=== PATIENT | male | born 1970 | race Two or more races ===

== ENCOUNTER 2023-03-23 04:54 | Day surgery (SDC) | payer OTHER ==
[2023-03-19 15:52] VITALS: BMI 30.4
[2023-03-23 13:12] VITALS: RESP 18
[2023-03-23] MEDS ORDERED: FENTANYL CITRATE/PF 50 MCG/ML VIAL ONE ×2 (15:50→16:00)
[2023-03-23] MEDS ORDERED: MIDAZOLAM HCL 2 MG/2 ML SINGLE DOSE VIAL ONE ×2 (15:51→16:04)
[2023-03-23] MEDS ORDERED: ONDANSETRON 4 MG/2 ML VIAL ONE (16:02)
[2023-03-23 17:25] VITALS: BP 118/60; PULSE 70; TEMP 98
== END 2023-03-23 17:25 | disposition home or self-care (01) ==
LOC: JASU-SURG 04:54
PROVIDERS: ATTEND Urology
PROC: 0TF4XZZ Fragmentation in Left Kidney Pelvis, External Approach (ICD-10-PCS; principal; 2023-03-23 15:00)
DX: N20.0 Calculus of kidney (principal)

== ENCOUNTER 2023-03-24 04:44 | Day surgery (SDC) | payer OTHER ==
[2023-03-24 04:51] VITALS: BMI 27.4
[2023-03-24] MEDS ORDERED: KETOROLAC TROMETHAMINE 30 MG/1 ML VIAL IVPUSH ONE (05:07)
[2023-03-24] MEDS ORDERED: ONDANSETRON 4 MG/2 ML VIAL IVPUSH ONE (05:08)
[2023-03-24] MEDS ORDERED: ONDANSETRON 4 MG/2 ML VIAL ONE (05:28)
[2023-03-24] MEDS ORDERED: KETOROLAC TROMETHAMINE 30 MG/1 ML VIAL ONE (05:28)
[2023-03-24 05:55] LABS: INR 1.09 (0.83-1.09); PROTHROMBIN TIME (PATIENT) 12.6 SEC (9.7-13.0)
[2023-03-24 05:57] LABS: ACTIVATED PTT 30.3 SECONDS (25.2-36.5)
[2023-03-24 06:06] LABS: POTASSIUM 4.1 mmol/L (3.5-5.1)
[2023-03-24 06:08] LABS: ALBUMIN 3.7 g/dl (3.4-5.0); BLOOD UREA NITROGEN 20.7 mg/dL (7-18); CALCIUM 8.5 mg/dL (8.5-10.1)
[2023-03-24 06:11] LABS: CREATININE 1.5 mg/dL (0.55-1.3)
[2023-03-24 06:13] LABS: BILIRUBIN,TOTAL 0.3 mg/dL (0.2-1); TOT PROT 6.6 g/dl (6.4-8.2)
[2023-03-24 06:18] LABS: BASO % 0.5 % (0-2.0); EOS % 0.1 % (0-4.5); HEMATOCRIT 44.5 % (35.4-49); LYMPH % 11.8 % (8-40); MCH 28.7 pg (25.7-33.7); MCHC 33.7 g/dl (32.0-35.9); MEAN CELL VOLUME 85.3 fl (80-96); MONO % 6.9 % (3.8-10.2); NEUT % 80.7 % (42.8-82.8); PLATELET COUNT 192 10^3/uL (134-434); RBC 5.22 M/mm3 (4.00-5.60); RDW 14.3 % (11.9-15.9)
[2023-03-24 06:39] LABS: EPI CELLS 1 /uL (0-25.1); HYALINE CASTS 0 /uL (0-3.1); PH,URINE 5.5 (5.0-8.0); URINE APPEARANCE CLEAR; URINE BACTERIA 6 /uL (0-1359); URINE BILIRUBIN NEGATIVE (NEGATIVE); URINE COLOR YELLOW; URINE GLUCOSE (UA) NEGATIVE (NEGATIVE); URINE KETONE NEGATIVE (NEGATIVE); URINE LEUK ESTERASE NEGATIVE (NEGATIVE); URINE NITRITE NEGATIVE (NEGATIVE); URINE PROTEIN NEGATIVE (NEGATIVE); URINE RBC 102 /uL (0-23.9); URINE UROBILINOGEN 0.2 mg/dL (0.2-1.0); URINE WBC 9 /uL (0-25.8)
[2023-03-24] MEDS ORDERED: SODIUM CHLORIDE 0.9% 500 ML INFUS.BAG IV ONE ×2 (07:07→08:30)
[2023-03-24] MEDS ORDERED: TAMSULOSIN HCL 0.4 MG CAP PO ONE (07:17)
[2023-03-24] MEDS ORDERED: TAMSULOSIN HCL 0.4 MG CAP ONE (07:24)
[2023-03-24] MEDS ORDERED: ACETAMINOPHEN 1000 MG/100 ML BAG IVPB ONE (08:16)
[2023-03-24] MEDS ORDERED: ACETAMINOPHEN INJECTION 100 ML IVPB ONE (08:18)
[2023-03-24] MEDS ORDERED: SODIUM CHLORIDE 1,000 ML IV SCH (08:30)
[2023-03-24] MEDS ORDERED: CEFTRIAXONE 1 GM in DEXTROSE 5%-WATER - 100 ML IVPB ONE (08:30)
[2023-03-24] MEDS ORDERED: CEFTRIAXONE 1 GM/50 ML BAG ONE (08:40)
[2023-03-24] MEDS ORDERED: ACETAMINOPHEN 1000 MG/100 ML BAG IVPB PRN (18:21)
[2023-03-25] MEDS ORDERED: ACETAMINOPHEN INJECTION 100 ML IVPB ONE (02:14)
[2023-03-25] MEDS ORDERED: ACETAMINOPHEN 1000 MG/100 ML BAG IVPB PRN ×2 (02:56→08:47)
[2023-03-25] MEDS ORDERED: FENTANYL CITRATE/PF 50 MCG/ML VIAL ONE ×3 (07:26→08:30)
[2023-03-25] MEDS ORDERED: MIDAZOLAM HCL 2 MG/2 ML SINGLE DOSE VIAL ONE (07:26)
[2023-03-25] MEDS ORDERED: PROPOFOL 20 ML ONE (07:26)
[2023-03-25] MEDS ORDERED: ONDANSETRON 4 MG/2 ML VIAL IVPUSH PRN ×2 (07:33→08:47)
[2023-03-25] MEDS ORDERED: LACTATED RINGERS SOLUTION 1,000 ML IV SCH (07:45)
[2023-03-25] MEDS ORDERED: DEXAMETHASONE SOD PHOSPHATE 4 MG/1 ML VIAL ONE (07:45)
[2023-03-25] MEDS ORDERED: ONDANSETRON 4 MG/2 ML VIAL ONE (07:45)
[2023-03-25] MEDS ORDERED: GENTAMICIN SO4 80 MG/2 ML VIAL ONE (07:45)
[2023-03-25] MEDS ORDERED: ceFAZolin SODIUM 1 GM VIAL ONE (07:45)
[2023-03-25] MEDS ORDERED: GENTAMICIN SO4 80 MG/2 ML VIAL IVPB ONE ×2 (07:48)
[2023-03-25] MEDS ORDERED: ceFAZolin SODIUM 1 GM VIAL IVPB ONE ×2 (07:48)
[2023-03-25] MEDS ORDERED: IOHEXOL 300 MG/ML INFUS..BTL IV ONE (07:48)
[2023-03-25] MEDS ORDERED: SODIUM CHLORIDE 1,000 ML IV SCH (08:47)
[2023-03-25] MEDS ORDERED: CEFTRIAXONE 1 GM in DEXTROSE 5%-WATER - 50 ML IVPB SCH (10:00)
[2023-03-25 10:01] VITALS: RESP 20
[2023-03-25 12:10] LABS: HEMATOCRIT 44.7 % (35.4-49); HEMOGLOBIN 15.6 GM/dL (11.7-16.9); MCH 29.3 pg (25.7-33.7); MCHC 34.9 g/dl (32.0-35.9); MEAN CELL VOLUME 83.9 fl (80-96); MEAN PLT VOLUME 8.5 fl (7.5-11.1); PLATELET COUNT 187 10^3/uL (134-434); RBC 5.33 M/mm3 (4.00-5.60); RDW 14.4 % (11.9-15.9); WHITE BLOOD COUNT 7.7 K/mm3 (4.0-10.0)
[2023-03-25 12:24] LABS: POTASSIUM 3.8 mmol/L (3.5-5.1)
[2023-03-25 12:26] LABS: ALBUMIN 3.6 g/dl (3.4-5.0)
[2023-03-25 12:27] LABS: BLOOD UREA NITROGEN 17.8 mg/dL (7-18)
[2023-03-25 12:29] LABS: CREATININE 1.4 mg/dL (0.55-1.3)
[2023-03-25 12:31] LABS: BILIRUBIN,TOTAL 0.2 mg/dL (0.2-1); TOT PROT 6.6 g/dl (6.4-8.2)
[2023-03-25 14:59] VITALS: BP 134/84; PULSE 84; TEMP 97.2
== END 2023-03-25 12:40 | disposition home or self-care (01) ==
LOC: JER 04:44 → JERBED 08:45 → UNDOADMOB 08:45 → JASUSAT 03-25 09:00
PROVIDERS: ATTEND Internal Medicine
PROC: 0T778DZ Dilation of Left Ureter with Intraluminal Device, Via Natural or Artificial Opening Endoscopic (ICD-10-PCS; principal; 2023-03-25 07:30)
PROC: 0T778DZ Dilation of Left Ureter with Intraluminal Device, Via Natural or Artificial Opening Endoscopic (ICD-10-PCS; 2023-03-25 07:30)
DX: N13.2 Hydronephrosis with renal and ureteral calculous obstruction (principal)
CPT/HCPCS: 36415; 74177-TC; 76000-TC-FY; 80053; 81003; 84484; 85025; 85027; 85610; 85730; 86850; 86900; 86901; 87040; 87086; 93005; 93010; 94760; 99285-25; C2617

== ENCOUNTER 2023-03-30 20:25 | Emergency (ER) | payer OTHER ==
[2023-03-30 20:36] VITALS: BP 154/95; BMI 32.3
[2023-03-30] MEDS ORDERED: ACETAMINOPHEN 500 MG TABLET (FP) PO ONE (22:17)
[2023-03-30] MEDS ORDERED: ACETAMINOPHEN 500 MG TABLET (FP) ONE (22:25)
[2023-03-30 23:55] VITALS: PULSE 82; RESP 17; TEMP 98.2
== END 2023-03-30 23:57 | disposition home or self-care (01) ==
LOC: JER 20:25
DX: R39.198 Other difficulties with micturition (principal); Z87.442 Personal history of urinary calculi
CPT/HCPCS: 99283-25